=== PATIENT | female | born 1985 | race Two or more races ===

== ENCOUNTER 2017-04-10 08:55 | Emergency (ER) | payer OTHER ==
[2017-04-10 08:59] VITALS: BMI 43.0
--- NOTE | 2017-04-10 09:29 | PDOC ---
History of Present Illness - General Chief Complaint: Pain Stated Complaint: ABD PAIN, DIZZY Time Seen by Provider: 04/10/17 09:28 - History of Present Illness Initial Comments: 04/10/17 09:28 Ms. Hill is a 31 yo female with no significant past medical history who presents to the emergency department with a 3 day history of increasing dizzy spells that she reports come on suddenly without cause and have been lasting for longer and longer. She reports that when this occurs she feels unsteady as if she will fall down, even when she is sitting without movement. She also reports waking up at 3am this morning with upper abdominal pain that she says has since resolved. She reports eating some spicy pasta her friend made for dinner last night. The patient denies chest pain, shortness of breath, and headache. Denies fever, chills, nausea, vomit, diarrhea and constipation. Denies dysuria, frequency, urgency and hematuria. Allergies: NKDA Past surgical history: Denies Past History - Past Medical History Allergies/Adverse Reactions: Allergies Allergy/AdvReac Type Severity Reaction Status Date / Time No Known Allergies Allergy Verified 04/10/17 11:15 Home Medications: Ambulatory Orders NK [No Known Home Medication] 04/10/17 Other medical history: DENIES - Suicide/Smoking/Psychosocial Hx Smoking Status: Yes Smoking History: Never smoked Have you smoked in the past 12 months: No Number of Cigarettes Smoked Daily: 0 Information on smoking cessation initiated: No 'Breaking Loose' booklet given: 06/09/14 Hx Alcohol Use: No Drug/Substance Use Hx: No Substance Use Type: None Review of Systems - Review of Systems Comments:: 04/10/17 09:29 GENERAL/CONSTITUTIONAL: No fever or chills. No weakness. HEAD, EYES, EARS, NOSE AND THROAT: No change in vision. No ear pain or discharge. No sore throat. CARDIOVASCULAR: No chest pain or shortness of breath RESPIRATORY: No cough, wheezing, or hemoptysis. GASTROINTESTINAL: +Some nausea during dizzy spells, no vomiting, diarrhea or constipation. GENITOURINARY: No dysuria, frequency, or change in urination. MUSCULOSKELETAL: No joint or muscle swelling or pain. No neck or back pain. SKIN: No rash NEUROLOGIC: +Increasingly frequent dizzy spells, No headache, vertigo, loss of consciousness, or change in strength/sensation. ENDOCRINE: No increased thirst. No abnormal weight change HEMATOLOGIC/LYMPHATIC: No anemia, easy bleeding, or history of blood clots. ALLERGIC/IMMUNOLOGIC: No hives or skin allergy. *Physical Exam - Vital Signs Last Vital Signs Temp Pulse Resp BP Pulse Ox 98.3 F 70 18 121/60 99 04/10/17 08:57 04/10/17 08:57 04/10/17 08:57 04/10/17 08:57 04/10/17 08:57 - Physical Exam Comments: 04/10/17 09:29 GENERAL: Awake, alert, and fully oriented, in no acute distress HEAD: No signs of trauma, normocephalic, atraumatic EYES: PERRLA, EOMI, sclera anicteric, conjunctiva clear ENT: Auricles normal inspection, hearing grossly normal, nares patent, oropharynx clear without exudates. Moist mucosa NECK: Normal ROM, supple, no lymphadenopathy, JVD, or masses LUNGS: No distress, speaks full sentences, clear to auscultation bilaterally HEART: Regular rate and rhythm, normal S1 and S2, no murmurs, rubs or gallops, peripheral pulses normal and equal bilaterally. ABDOMEN: +Mild abdominal discomfort noted in bilateral upper quadrants. Soft, normoactive bowel sounds. No guarding, no rebound. No masses EXTREMITIES: Normal inspection, Normal range of motion, no edema. No clubbing or cyanosis. NEUROLOGICAL: Cranial nerves II through XII grossly intact. Normal speech, normal gait, no focal sensorimotor deficits SKIN: Warm, Dry, normal turgor, no rashes or lesions noted. ED Treatment Course - LABORATORY CBC & Chemistry Diagram: 04/10/17 11:00 04/10/17 11:00 Medical Decision Making - Medical Decision Making 04/10/17 11:48 Ms. Hill is currently resting comfortably with no symptoms of dizziness or stomach discomfort. EKG: Normal rhythm, normal rate, normal access, normal interval, no ST elevations - Normal EKG. Troponin negative, Labs wnl as below. Patient currently menstrating. No other issues. Will recommend outpatient PCP follow-up as needed for any further dizzy symptoms. Laboratory Results - last 24 hr 04/10/17 04/10/17 04/10/17 11:00 11:00 11:00 WBC 8.6 RBC 4.46 Hgb 12.1 Hct 37.0 MCV 82.9 MCH 27.2 MCHC 32.8 RDW 14.0 Plt Count 276 MPV 8.5 Neutrophils % 67.9 D Lymphocytes % 21.4 D Monocytes % 6.9 Eosinophils % 3.2 D Basophils % 0.6 Sodium 138 Potassium 4.4 Chloride 104 Carbon Dioxide 24 Anion Gap 10 BUN 8 Creatinine 0.6 Creat Clearance w eGFR > 60 Random Glucose 76 Calcium 8.6 Total Bilirubin 0.3 D AST 24 ALT 40 D Alkaline Phosphatase 107 Creatine Kinase 68 Troponin I < 0.02 Total Protein 7.6 Albumin 3.4 Lipase 110 Urine Color Straw Urine Appearance Clear Urine pH 7.0 Urine Protein Negative Urine Glucose (UA) Negative Urine Ketones Negative Urine Blood 2+ H Urine Nitrite Negative Urine Bilirubin Negative Urine Urobilinogen Negative Urine RBC 4 Urine WBC <1 Ur Epithelial Cells Rare Urine HCG, Qual Negative *DC/Admit/Observation/Transfer Diagnosis at time of Disposition: Dizziness Gastroesophageal reflux disease Qualifiers: Esophagitis presence: esophagitis presence not specified Qualified Code(s): K21.9 - Gastro-esophageal reflux disease without esophagitis; K21.9 - Gastro- esophageal reflux disease without esophagitis; K21.9 - Gastro-esophageal reflux disease without esophagitis
[2017-04-10] MEDS ORDERED: SODIUM CHLORIDE 1,000 ML IV STA (10:08)
--- NOTE | 2017-04-10 10:34 | PDOC ---
Attending Attestation - Resident Resident Name: Xavi Hedrick - ED Attending Attestation I have performed the following: I have examined & evaluated the patient, The case was reviewed & discussed with the resident, I agree w/resident's findings & plan, Exceptions are as noted - HPI HPI: 04/10/17 09:48 31yo F hx cholelithiasis p/w epigastric abdominal pain since 3am and 3 days of intermittent dizziness. Abdominal pain was burning and resolved on its own without intervention. She reports she noticed the dizziness 3 days ago, when she was at a birthday [employer] party, was sitting and stood up, got lightheaded and felt like she was going to pass out. Denies room spinning, states she felt "unsteady " and had to sit down. At that time, she sat and did not have LOC. She reports her mom said she was pale when she sat down. +associated nausea but no associated vomiting, CP, SOB, headache, or abdominal pain. Pt reports a similar sensation of lightheadedness at [employer] yesterday that resolved when she leaned her head over the shopping cart. Pt went on google yesterday and became concerned she was having a stroke and thus presented to the ED today. Denies current dizziness or abd pain, is currently asymptomatic. Denies previous episodes of syncope. Had unprotected sex with her son's father 1 month ago. Reports she currently has her period. Denies vaginal discharge or any abd pain. Also denies fevers, chills, focal weakness or numbness, visual symptoms. - Physicial Exam PE: 04/10/17 10:34 GENERAL: Awake, alert, and fully oriented, in no acute distress HEAD: No signs of trauma EYES: PERRLA, EOMI, sclera anicteric, conjunctiva clear ENT: Auricles normal inspection, hearing grossly normal, nares patent, oropharynx clear without exudates. Moist mucosa NECK: Normal ROM, supple, no lymphadenopathy, JVD, or masses LUNGS: Breath sounds equal, clear to auscultation bilaterally. No wheezes, and no crackles HEART: Regular rate and rhythm, normal S1 and S2, no murmurs, rubs or gallops ABDOMEN: Soft, mild epigastric ttp, normoactive bowel sounds. No guarding, no rebound. No masses EXTREMITIES: Normal range of motion, no edema. No clubbing or cyanosis. No cords, erythema, or tenderness NEUROLOGICAL: Normal speech, cranial nerves intact, negative pronator drift, 5/ 5 strength in all 4 extremities, normal sensation to light touch in all 4 extremities, normal cerebellar exam, normal gait, can walk in tandem, normal FNF , normal reflexes and tone SKIN: Warm, Dry, normal turgor, no rashes or lesions noted. - Medical Decision Making 04/10/17 10:35 31yo F hx cholelithiasis p/w epigastric pain, resolved and intermittent episodes of pre-syncope. Vitals and exam, including full neurologic exam wnl. Resolved peigastric pain may be biliary colic vs GERD vs pancreatitis vs gastritis. Pre-syncope may be 2/2 anemia vs vs electrolyte abnormality vs UTI. Unlikely CVA as pt's neuro exam is completely normal and pt has no risk factors. -labs -UPT -UA -IVF -reassess 04/10/17 12:19 Labs unremarkable. Urine test negative. UA with no signs of infection. Patient feels much better after 1 L of fluids. Ambulating in the ED with a steady gait, denies dizziness. Patient is currently working on making an appointment with her primary care doctor. We've also given her the name of a primary doctor here if she is unable to get an appointment sooner. I discussed the physical exam findings, ancillary test results and final diagnoses with the patient. I answered all of the patient's questions. The patient was satisfied with the care received and felt comfortable with the discharge plan and treatment plan. The patient will call their primary care physician within 24 hours to arrange follow-up and will return to the Emergency Department with any new, persistent or worsening symptoms. Heart Score/ECG Review #1 04/10/17 10:54 NSR, rate 65, nl axis and intervals, no GERTRUDE, isolated TWI lead III
[2017-04-10 11:07] LABS: BASOPHIL 0.6 % (0-2.0); EOSINOPHIL 3.2 % (0-4.5); MCH 27.2 pg (25.7-33.7); MCHC 32.8 g/dl (32.0-36.0); MEAN CELL VOLUME 82.9 fl (80-96); MEAN PLT VOLUME 8.5 fl (7.5-11.1); NEUTROPHILS 67.9 % (42.8-82.8); PLATELET COUNT 276 K/MM3 (134-434); WHITE BLOOD COUNT 8.6 K/mm3 (4.0-10.0)
[2017-04-10 11:30] LABS: ALBUMIN 3.4 g/dl (3.4-5.0); ANION GAP 10 (8-16); BILIRUBIN,TOTAL 0.3 mg/dL (0.2-1.0); CALCIUM 8.6 mg/dL (8.5-10.1); CO2 24 mmol/L (21-32); CREATININE 0.6 mg/dL (0.55-1.02); GLUCOSE,RANDOM 76 mg/dL (74-106); SGOT/AST 24 U/L (15-37); SGPT/ALT 40 U/L (12-78); TOT PROT 7.6 g/dl (6.4-8.2)
[2017-04-10 11:32] LABS: ALK PHOS 107 U/L (45-117); CPK 68 IU/L (26-192); TROPONIN I < 0.02 ng/ml (0.00-0.05)
[2017-04-10 11:34] LABS: URINE APPEARANCE CLEAR; URINE BILIRUBIN NEGATIVE (NEGATIVE); URINE BLOOD 2+ (NEGATIVE); URINE COLOR STRAW; URINE GLUCOSE (UA) NEGATIVE (NEGATIVE); URINE KETONE NEGATIVE (NEGATIVE); URINE NITRITE NEGATIVE (NEGATIVE); URINE PROTEIN NEGATIVE (NEGATIVE); URINE UROBILINOGEN NEGATIVE mg/dL (0.2-1.0)
[2017-04-10 11:38] LABS: URINE RBC 4 /hpf (0-3); URINE WBC <1 /hpf (3-5)
[2017-04-10 13:00] VITALS: BP 127/74; PULSE 78; TEMP 98.6
[2017-04-10 19:49] LABS: URINE LEUK ESTERASE Negative (NEGATIVE)
--- NOTE | 2017-04-10 21:59 | EKG ---
Test Reason : Blood Pressure : / mmHG Vent. Rate : 065 BPM Atrial Rate : 065 BPM P-R Int : 130 ms QRS Dur : 094 ms QT Int : 434 ms P-R-T Axes : 033 028 020 degrees QTc Int : 451 ms NORMAL SINUS RHYTHM NORMAL ECG WHEN COMPARED WITH ECG OF 09-FEB-2013 19:49, NO SIGNIFICANT CHANGE WAS FOUND CLINICAL CORRELATION IS RECOMMENDED Confirmed by LESVIA OWENS MD ([id number]) on 04/10/2017 9:58:59 PM Referred By: Confirmed By:LESVIA OWENS MD
== END 2017-04-10 12:58 | disposition home or self-care (01) ==
LOC: JER 08:55
PROC: 3E0337Z Introduction of Electrolytic and Water Balance Substance into Peripheral Vein, Percutaneous Approach (ICD-10-PCS; principal; 2017-04-10)
DX: R42 Dizziness and giddiness (principal)
CPT/HCPCS: 36415; 80053; 81003; 81015; 82550; 83690; 84484; 84703; 85025; 93005; 93010; 99284-25

== ENCOUNTER 2017-05-30 07:04 | Inpatient (IN) | payer OTHER ==
--- NOTE | 2017-05-30 08:20 | PDOC ---
History of Present Illness <JacobTova - Last Filed: 05/30/17 11:54> - History of Present Illness Initial Comments: 05/30/17 08:44 31-year-old female with a history of cholelithiasis presents with sudden onset 10 out of 10 sharp epigastric pain this morning that woke her up from sleep. She reports that the pain comes in waves and then resolves on its own. She reports having similar pain in the past after greasy meals and states she ate [employer] last night. She's had similar episodes of pain for months after surgery foods. Reports chills but no fevers. Also reports nausea but no vomiting. Tried zantac with no relief. Denies any chest pain, shortness of breath, lower extremity edema, urinary symptoms, headache or focal weakness. <Randy Morrison - Last Filed: 05/30/17 15:04> - General Chief Complaint: Pain Stated Complaint: ABD PAIN Time Seen by Provider: 05/30/17 08:17 Past History <Tova James - Last Filed: 05/30/17 11:54> - Past Medical History COPD: No Other medical history: NONE - Suicide/Smoking/Psychosocial Hx Smoking Status: Yes Smoking History: Never smoked Have you smoked in the past 12 months: No Number of Cigarettes Smoked Daily: 0 'Breaking Loose' booklet given: 06/09/14 Hx Alcohol Use: No Drug/Substance Use Hx: No Substance Use Type: None <Randy Morrison - Last Filed: 05/30/17 15:04> - Past Medical History Allergies/Adverse Reactions: Allergies Allergy/AdvReac Type Severity Reaction Status Date / Time No Known Allergies Allergy Verified 05/30/17 07:22 Home Medications: Ambulatory Orders NK [No Known Home Medication] 04/10/17 Review of Systems - Review of Systems Comments:: 05/30/17 08:54 GENERAL/CONSTITUTIONAL: +chills. No fever, no weakness. HEAD, EYES, EARS, NOSE AND THROAT: No change in vision. No ear pain or discharge. No sore throat. GASTROINTESTINAL: + nausea, no vomiting, diarrhea or constipation. +abd pain GENITOURINARY: No dysuria, frequency, or change in urination. CARDIOVASCULAR: No chest pain or shortness of breath. RESPIRATORY: No cough, wheezing, or hemoptysis. MUSCULOSKELETAL: No joint or muscle swelling or pain. No neck or back pain. SKIN: No rash NEUROLOGIC: No headache, vertigo, loss of consciousness, or change in strength/ sensation. ENDOCRINE: No increased thirst. No abnormal weight change. HEMATOLOGIC/LYMPHATIC: No anemia, easy bleeding, or history of blood clots. ALLERGIC/IMMUNOLOGIC: No hives or skin allergy. <Kyler Morrisonmna - Last Filed: 05/30/17 15:04> *Physical Exam - Vital Signs Last Vital Signs Temp Pulse Resp BP Pulse Ox 98.0 F 85 20 121/33 99 05/30/17 07:19 05/30/17 07:19 05/30/17 07:19 05/30/17 07:19 05/30/17 07:19 <Tova James - Last Filed: 05/30/17 11:54> - Vital Signs Last Vital Signs Temp Pulse Resp BP Pulse Ox 98.0 F 85 20 121/33 99 05/30/17 07:19 05/30/17 07:19 05/30/17 07:19 05/30/17 07:19 05/30/17 07:19 - Physical Exam Comments: 05/30/17 08:55 GENERAL: Awake, alert, and fully oriented, in no acute distress. Obese HEAD: No signs of trauma EYES: PERRLA, EOMI, sclera anicteric, conjunctiva clear ENT: Auricles normal inspection, hearing grossly normal, nares patent, oropharynx clear without exudates. Moist mucosa NECK: Normal ROM, supple, no lymphadenopathy, JVD, or masses LUNGS: Breath sounds equal, clear to auscultation bilaterally. No wheezes, and no crackles HEART: Regular rate and rhythm, normal S1 and S2, no murmurs, rubs or gallops ABDOMEN: Soft, +epigastric and RUQ ttp, +murphys sign, normoactive bowel sounds. No guarding, no rebound. No masses EXTREMITIES: Normal range of motion, no edema. No clubbing or cyanosis. No cords, erythema, or tenderness NEUROLOGICAL: Normal speech, cranial nerves intact, negative pronator drift, 5/ 5 strength in all 4 extremities, normal sensation to light touch in all 4 extremities, normal cerebellar exam, normal gait, normal reflexes and tone SKIN: Warm, Dry, normal turgor, no rashes or lesions noted. <Randy Morrison - Last Filed: 05/30/17 15:04> ED Treatment Course - LABORATORY CBC & Chemistry Diagram: 05/30/17 09:14 05/30/17 09:14 - ADDITIONAL ORDERS Additional order review: Laboratory Results 05/30/17 05/30/17 09:14 09:14 Sodium 136 Potassium 4.6 Chloride 104 Carbon Dioxide 27 Anion Gap 5 L BUN 10 D Creatinine 0.8 D Creat Clearance w eGFR > 60 Random Glucose 102 D Calcium 8.4 L Total Bilirubin 0.3 AST 19 D ALT 34 Alkaline Phosphatase 115 Total Protein 7.9 Albumin 3.4 Lipase 111 Urine Color Lt. yellow Urine Appearance Clear Urine pH 6.5 Ur Specific [place] 1.025 Urine Protein Trace H Urine Glucose (UA) Negative Urine Ketones Negative Urine Blood Negative Urine Nitrite Positive Urine Bilirubin Negative Urine Urobilinogen 0.2 Ur Leukocyte Esterase Negative Urine WBC (Auto) 2 Urine RBC (Auto) 1 Ur Epithelial Cells Few Urine Mucus Many 05/30/17 09:14 RBC 4.65 MCV 82.1 MCHC 33.1 RDW 14.1 MPV 8.4 Neutrophils % 82.5 D Lymphocytes % 10.9 D Monocytes % 4.8 Eosinophils % 1.5 Basophils % 0.3 - Medications Given in the ED: ED Medications Discontinued Medications Generic Name Dose Route Start Last Admin Trade Name Travisq PRN Reason Stop Dose Admin Famotidine/Sodium Chloride 20 mg in 50 mls @ 100 mls/hr 05/30/17 10:30 09:32 Pepcid 20 Mg Premixed Ivpb - IVPB 05/30/17 10:59 100 mls/hr ONCE ONE Administration Ondansetron HCl 4 mg 05/30/17 08:41 05/30/17 09:22 Zofran Injection IVPUSH 05/30/17 08:42 4 mg ONCE ONE Administration Sodium Chloride 1,000 ml 05/30/17 08:41 05/30/17 09:22 Normal Saline - IV 05/30/17 08:42 1,000 ml ONCE ONE Administration <Tova James - Last Filed: 05/30/17 11:54> - LABORATORY CBC & Chemistry Diagram: 05/30/17 09:14 05/30/17 09:14 <Randy Morrison - Last Filed: 05/30/17 15:04> Medical Decision Making - Medical Decision Making Call placed to Dr. Andino at 11:40 AM. Awaiting call back. Dr. Andino responded to the page at 11:41 AM Patient's case was discussed. <Tova James - Last Filed: 05/30/17 11:54> - Medical Decision Making 05/30/17 08:55 31-year-old female with history of cholelithiasis presents with 10 out of 10 intermittent epigastric pain. Vitals are unremarkable. Exam with positive Meyers sign and tenderness to the right upper quadrant and epigastric area. Presentation is highly concerning for acute cholecystitis. Also on the differential is pancreatitis versus gastritis. Plan: -NPO -plans -IVF -US -pain control -surgery c/s 05/30/17 10:04 CBC remarkable for leukocytosis to 13. CMP is pending. Urinalysis is nitrite positive but with minimal 's. Patient is asymptomatic and thus will defer treatment for now 05/30/17 12:09 UPT negative. Ultrasound with contracted gallbladder and multiple stones. Patient remains tender on exam, concerning for clinical cholecystitis. Case discussed with Dr. Andino for surgical evaluation who will evaluate the patient. 05/30/17 14:11 Patient is awaiting surgical evaluation. The nurse informed me that the family is upset and stated that "nothing is being done." I presented to the bedside to speak with the patient and her family. I explained that thus far we have obtained labs, and ultrasound, urinalysis and treated her pain and nausea. I also discussed with her that I spoke with the surgeon and have been awaiting a surgical consult. The family stated that I have not checked in with the patient except for the initial evaluation however, I checked on the patient twice once to see if she been lined and labbed at which point I asked the nurse to put in an IV and draw lab work. I also checked on her about an hour later to ensure that her pain was improved, at which point the patient stated that medications had helped her pain. Either way, I apologized to the patient for the delay and offered to page Dr. Andino again. 05/30/17 14:18 Dr. Andino currently at the bedside. 05/30/17 15:01 Pt to be admitted to Dr. Thu for bautista tomorrow. Pt NPO. Maintenance fluids ordered Case discussed in detail with admitting physician including history, physical exam and ancillary studies. Admitting physician has assumed care for the patient, will follow all pending diagnostics and will complete the evaluation and treatment. <Randy Morrison - Last Filed: 05/30/17 15:04> *DC/Admit/Observation/Transfer <Tova James - Last Filed: 05/30/17 11:54> - Discharge Dispostion Admit: Yes - Attestations Physician Attestion: 05/30/17 15:01 I, Dr. Randy Morrison MD, attest that this document has been prepared under my direction and personally reviewed by me in its entirety. I further attest, that it accurately reflects all work, treatment, procedures and medical decision -making performed by me. <Randy Morrison - Last Filed: 05/30/17 15:04> Diagnosis at time of Disposition: Cholecystitis - Discharge Dispostion Condition at time of disposition: Stable
[2017-05-30] MEDS ORDERED: ONDANSETRON 4 MG/2 ML VIAL IVPUSH ONE (08:41)
[2017-05-30] MEDS ORDERED: SODIUM CHLORIDE 0.9% 500 ML INFUS.BAG IV ONE (08:41)
[2017-05-30] MEDS ORDERED: ONDANSETRON 4 MG/2 ML VIAL ONE (08:52)
[2017-05-30 09:26] LABS: PH,URINE 6.5 (5.0-8.0); URINE APPEARANCE CLEAR; URINE BILIRUBIN NEGATIVE (NEGATIVE); URINE BLOOD NEGATIVE (NEGATIVE); URINE COLOR LT. YELLOW; URINE GLUCOSE (UA) NEGATIVE (NEGATIVE); URINE KETONE NEGATIVE (NEGATIVE); URINE PROTEIN TRACE (NEGATIVE); URINE UROBILINOGEN 0.2 mg/dL (0.2-1.0)
[2017-05-30 09:31] LABS: URINE NITRITE POSITIVE (NEGATIVE)
[2017-05-30 09:38] LABS: BASOPHIL 0.3 % (0-2.0); EOSINOPHIL 1.5 % (0-4.5); MCH 27.1 pg (25.7-33.7); MCHC 33.1 g/dl (32.0-36.0); MEAN CELL VOLUME 82.1 fl (80-96); MEAN PLT VOLUME 8.4 fl (7.5-11.1); NEUTROPHILS 82.5 % (42.8-82.8); PLATELET COUNT 305 K/MM3 (134-434); RDW 14.1 % (11.6-15.6); WHITE BLOOD COUNT 13.4 K/mm3 (4.0-10.0)
[2017-05-30 09:58] LABS: ALBUMIN 3.4 g/dl (3.4-5.0); ALK PHOS 115 U/L (45-117); ANION GAP 5 (8-16); BILIRUBIN,TOTAL 0.3 mg/dL (0.2-1.0); CALCIUM 8.4 mg/dL (8.5-10.1); CO2 27 mmol/L (21-32); CREATININE 0.8 mg/dL (0.55-1.02); GLUCOSE,RANDOM 102 mg/dL (74-106); SGOT/AST 19 U/L (15-37); SGPT/ALT 34 U/L (12-78); TOT PROT 7.9 g/dl (6.4-8.2)
[2017-05-30 10:00] LABS: URINE MUCUS MANY; URINE RBC 1 /hpf (0-3); URINE WBC 2 /hpf (3-5)
[2017-05-30] MEDS ORDERED: FAMOTIDINE 20 MG/50 ML IVPB 20 MG/50 ML MG IVPB ONE ×2 (10:30→17:01)
[2017-05-30 11:47] LABS: URINE LEUK ESTERASE Negative (NEGATIVE)
--- NOTE | 2017-05-30 15:25 | HP ---
Admitting History and Physical - Primary Care Physician PCP: Viktoriya Bennett (Viktoriya Thompson on [facility]) - Admission Chief Complaint: epigastric pain with nausea History of Present Illness: 31yo obese F with h/o cholelithiasis, changed her diet about 2 years ago and has not had pain attacks for some time until more recently with more fatty food choices. She used to get pain that lasted no more than an hour and would go away. This time, she was awakened at 6am this morning after [employer] burger and fries last night with epigastric pain so bad, she could barely move. Zantac did not help, though it often does (along with Tums) for acid-related pain. She had mild chills but no fever, nausea but no vomiting, and no diarrhea or constipation. In ER, she is afebrile, wbc 13.4, LFTs and lipase normal, and US showed likely contracted gallbladder with multiple stones, similar to 2 years ago, but less well visualized individually. No biliary ductal dilation. Her pain is better after medication, though she initially had a Meyers's sign on ER exam. She has no more nausea now. 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) Gastrointestinal: Yes: GERD Hepatobiliary: Yes: Cholelithiasis ...LMP Comment: due anytime now ...: No ...Para: 1 - Past Surgical History Past Surgical History: Yes: None - Smoking History Smoking history: Former smoker Have you smoked in the past 12 months: No Aproximately how many cigarettes per day: 0 (1ppd x 10 yrs) If you are a former smoker, when did you quit?: 6 yrs ago - Alcohol/Substance Use Hx Alcohol Use: Yes (social) History of Substance Use: reports: None - Social History Usual Living Arrangement: Yes: With Child ADL: Independent 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 Zantac prn. Tums prn Family Disease History - Family Disease History Family Disease History: CA: Father (at 70, living at 80 (not sure what kind)), Other: Mother (celiac disease) Review of Systems - Review of Systems Constitutional: reports: Chills (mild). denies: Fever Eyes: denies: Blurred Vision, Recent Change in Vision HENT: reports: Throat Pain (today), Ringing in Ears (right, at times). denies: Difficult Swallowing, Nasal Congestion Neck: denies: Swollen Glands, Tenderness Cardiovascular: denies: Chest Pain, Palpitations Respiratory: reports: Cough (just in last day or so), SOB on Exertion. denies: SOB Gastrointestinal: reports: Abdominal Pain (with hpi), Indigestion (at times - "cool sensation" in esophagus, occasional sour taste in throat), Nausea (with hpi). denies: Constipation, Diarrhea, Vomiting Genitourinary: denies: Burning, Dysuria, Frequency, Urgency Musculoskeletal: reports: Back Pain (at times, uses no meds). denies: Joint Pain, Muscle Pain Integumentary: denies: Change in Color, Rash Neurological: reports: Dizziness (gets with menses), Headache (stress type) Psychiatric: denies: Anxiety, Depression Physical Examination Vital Signs: Vital Signs Temperature 98.0 F 05/30/17 07:19 Pulse Rate 85 05/30/17 07:19 Respiratory Rate 20 05/30/17 07:19 Blood Pressure 121/33 05/30/17 07:19 O2 Sat by Pulse Oximetry (%) 99 05/30/17 07:19 Constitutional: Yes: Well Nourished, No Distress, Calm, Obese Eyes: Yes: Conjunctiva Clear, EOM Intact. No: Sclera Icterus HENT: Yes: Atraumatic, Normocephalic Neck: Yes: Supple, Trachea Midline Cardiovascular: Yes: Regular Rate and Rhythm. No: Murmur Respiratory: Yes: Regular, CTA Bilaterally Gastrointestinal: Yes: Soft, Abdomen, Obese, Hypoactive Bowel Sounds. No: Distention, Tenderness (very mild RUQ tend on deep inspiration to deep palpation only), Tenderness, Epigastrium, Tenderness, Rebound ...Rectal Exam: Yes: Deferred Renal/: No: CVA Tenderness - Left, CVA Tenderness - Right Musculoskeletal: No: Joint Stiffness, Joint Swelling Extremities: No: Cool, Cyanosis Edema: No Peripheral Pulses WNL: Yes Integumentary: No: Jaundice, Rash Neurological: Yes: Alert, Oriented Psychiatric: Yes: Alert, Oriented Labs: CBC, BMP 05/30/17 09:14 05/30/17 09:14 CMP Sodium 136 mmol/L (136-145) 05/30/17 09:14 Potassium 4.6 mmol/L (3.5-5.1) 05/30/17 09:14 Chloride 104 mmol/L (98-107) 05/30/17 09:14 Carbon Dioxide 27 mmol/L (21-32) 05/30/17 09:14 Anion Gap 5 (8-16) L 05/30/17 09:14 BUN 10 mg/dL (7-18) D 05/30/17 09:14 Creatinine 0.8 mg/dL (0.55-1.02) D 05/30/17 09:14 Creat Clearance w eGFR > 60 (>60) 05/30/17 09:14 Random Glucose 102 mg/dL (74-106) D 05/30/17 09:14 Calcium 8.4 mg/dL (8.5-10.1) L 05/30/17 09:14 Total Bilirubin 0.3 mg/dL (0.2-1.0) 05/30/17 09:14 AST 19 U/L (15-37) D 05/30/17 09:14 ALT 34 U/L (12-78) 05/30/17 09:14 Alkaline Phosphatase 115 U/L (45-117) 05/30/17 09:14 Total Protein 7.9 g/dl (6.4-8.2) 05/30/17 09:14 Albumin 3.4 g/dl (3.4-5.0) 05/30/17 09:14 Lipase 111 U/L (73-393) 05/30/17 09:14 Beta HCG, Quant < 1.0 mIU/ml 05/30/17 09:14 Imaging - Results Ultrasound: Report Reviewed (gallstones without clear imaging of gallbladder wall, normal cbd), Image Reviewed Problem List - Problems (1) Calculus of gallbladder with acute on chronic cholecystitis without obstruction Assessment/Plan: clinical picture and leukocytosis most consistent with acute on chronic cholecystitis will admit for IV antibiotics and laparoscopic cholecystectomy NPO/IVF until after surgery GI/DVT prophylaxis ID for antibiotic approval - plan Cefoxitin trend labs in am, preop labs MRCP if labs concerning in am Discussed with patient risks, benefits and alternatives of laparoscopic possible open cholecystectomy, including but not limited to bleeding, infection , injury to adjacent structures, bile leak or ductal injury, intraabdominal abscess, need for further procedures; alternatives include antibiotics, delayed or no surgery - risks of this include recurrence of cholecystitis, cholangitis, pancreatitis, sepsis. Patient desires to proceed with operation - will take to OR tomorrow for above pending repeat labs. Informed consent signed for same. Pt anticipated to spend at least two midnights in the hospital. Code(s): K80.12 - CALCULUS OF GB W ACUTE AND CHRONIC CHOLECYST W/O OBSTRUCTION (2) Acid reflux Assessment/Plan: GI prophylaxis in hospital Code(s): K21.9 - GASTRO-ESOPHAGEAL REFLUX DISEASE WITHOUT ESOPHAGITIS Qualifiers: Esophagitis presence: without esophagitis Qualified Code(s): K21.9 - Gastro -esophageal reflux disease without esophagitis (3) Epigastric pain Code(s): R10.13 - EPIGASTRIC PAIN (4) Obesity (BMI 30-39.9) Code(s): E66.9 - OBESITY, UNSPECIFIED
[2017-05-30] MEDS ORDERED: morphine SULFATE 4 MG/ML VIAL IVPUSH PRN (15:51)
[2017-05-30] MEDS ORDERED: ONDANSETRON 4 MG/2 ML VIAL IVPUSH PRN (15:54)
[2017-05-30] MEDS ORDERED: cefOXitin SODIUM 2 GM VIAL (RESTRICTED TO ID) IVPB ONE (15:55)
[2017-05-30] MEDS ORDERED: FAMOTIDINE IV 20 MG/12 ML VIAL IVPUSH SCH (16:00)
[2017-05-30] MEDS ORDERED: D5-1/2NS+20 MEQ KCL - 1,000 ML IV SCH (16:00)
[2017-05-30] MEDS ORDERED: CEFOXITIN SODIUM 1 GM PUSH 1 GM/10 ML DISP.SYRIN IVPUSH SCH (16:30)
[2017-05-30] MEDS: CEFOXITIN SODIUM 2 GM in DEXTROSE 5%-WATER - 100 ML IVPB SCH (17:10)
[2017-05-30] MEDS: DEXTROSE 5%-LACTATED RINGERS 1,000 ML IV SCH (17:10)
[2017-05-30] MEDS: FAMOTIDINE 20 MG/50 ML IVPB 20 MG/50 ML MG IVPB SCH ×2 (17:10→22:00)
[2017-05-31 00:04] VITALS: BMI 41.8
[2017-05-31] MEDS: CEFOXITIN SODIUM 2 GM in DEXTROSE 5%-WATER - 100 ML IVPB SCH ×3 (01:38→17:11)
[2017-05-31] MEDS: DEXTROSE 5%-LACTATED RINGERS 1,000 ML IV SCH ×3 (04:00→22:51)
[2017-05-31 08:44] LABS: BASOPHIL 0.4 % (0-2.0); EOSINOPHIL 3.1 % (0-4.5); MCH 27.9 pg (25.7-33.7); MCHC 33.3 g/dl (32.0-36.0); MEAN CELL VOLUME 83.5 fl (80-96); MEAN PLT VOLUME 8.7 fl (7.5-11.1); NEUTROPHILS 66.6 % (42.8-82.8); PLATELET COUNT 215 K/MM3 (134-434); WHITE BLOOD COUNT 6.6 K/mm3 (4.0-10.0)
[2017-05-31 08:46] LABS: INR 1.16 (0.82-1.09); PROTHROMBIN TIME (PATIENT) 13.1 SEC (9.98-11.88)
[2017-05-31 08:58] LABS: AMYLASE 28 U/L (25-115); ANION GAP 6 (8-16); CALCIUM 8.1 mg/dL (8.5-10.1); CO2 28 mmol/L (21-32); CREATININE 0.8 mg/dL (0.55-1.02); GLUCOSE,RANDOM 120 mg/dL (74-106); SGOT/AST 17 U/L (15-37); SGPT/ALT 30 U/L (12-78)
[2017-05-31 09:01] LABS: ALK PHOS 93 U/L (45-117); BILIRUBIN,TOTAL 0.6 mg/dL (0.2-1.0); TOT PROT 6.5 g/dl (6.4-8.2)
[2017-05-31] MEDS ORDERED: PT OWN MED DRAWER 7, Y5N ONE ×2 (09:31→17:06)
[2017-05-31] MEDS: FAMOTIDINE 20 MG/50 ML IVPB 20 MG/50 ML MG IVPB SCH ×2 (09:36→22:50)
--- NOTE | 2017-05-31 10:19 | PN ---
Progress Note, Physician Chief Complaint: epigastric pain History of Present Illness: Pt seen and examined in bed. No overnight events. Had some pain this am, but has none now after morphine. No nausea or fevers. - Current Medication List Current Medications: Active Medications Dextrose/Lactated Ringer's (D5-Lr -) 1,000 mls @ 125 mls/hr IV ASDIR REINIER Last Admin: 05/31/17 04:00 Dose: 125 mls/hr Cefoxitin Sodium 2 gm/ (Dextrose) 100 mls @ 200 mls/hr IVPB Q8H-IV REINIER Last Admin: 05/31/17 01:38 Dose: 200 mls/hr Famotidine/Sodium Chloride (Pepcid 20 Mg Premixed Ivpb -) 20 mg in 50 mls @ 100 mls/hr IVPB BID REINIER Last Admin: 05/31/17 09:36 Dose: 100 mls/hr Morphine Sulfate (Morphine Sulfate) 2 mg IVPUSH Q4H PRN PRN Reason: PAIN Last Admin: 05/31/17 06:46 Dose: 2 mg Ondansetron HCl (Zofran Injection) 4 mg IVPUSH Q6H PRN PRN Reason: NAUSEA - Objective Vital Signs: Vital Signs Temperature 98.3 F 05/31/17 06:00 Pulse Rate 65 05/31/17 06:00 Respiratory Rate 18 05/31/17 06:00 Blood Pressure 103/57 05/31/17 06:00 O2 Sat by Pulse Oximetry (%) 98 05/30/17 20:30 Constitutional: Yes: No Distress, Calm, Obese Eyes: Yes: Conjunctiva Clear, EOM Intact HENT: Yes: Atraumatic, Normocephalic Neck: Yes: Supple, Trachea Midline Cardiovascular: Yes: Regular Rate and Rhythm. No: Murmur Respiratory: Yes: Regular, CTA Bilaterally Gastrointestinal: Yes: Normal Bowel Sounds, Soft, Abdomen, Obese, Tenderness ( mild RUQ to deep palpation, not really epigastric). No: Distention Extremities: No: Cool, Cyanosis Integumentary: Yes: Tattoos. No: Jaundice, Rash Neurological: Yes: Alert, Oriented Psychiatric: Yes: Alert, Oriented Labs: CBC, BMP 05/31/17 07:35 05/31/17 07:35 INR, PTT INR 1.16 (0.82-1.09) H 05/31/17 07:35 CMP Sodium 140 mmol/L (136-145) 05/31/17 07:35 Potassium 4.4 mmol/L (3.5-5.1) 05/31/17 07:35 Chloride 106 mmol/L (98-107) 05/31/17 07:35 Carbon Dioxide 28 mmol/L (21-32) 05/31/17 07:35 Anion Gap 6 (8-16) L 05/31/17 07:35 BUN 7 mg/dL (7-18) D 05/31/17 07:35 Creatinine 0.8 mg/dL (0.55-1.02) 05/31/17 07:35 Creat Clearance w eGFR > 60 (>60) 05/31/17 07:35 Random Glucose 120 mg/dL (74-106) H 05/31/17 07:35 Calcium 8.1 mg/dL (8.5-10.1) L 05/31/17 07:35 Total Bilirubin 0.6 mg/dL (0.2-1.0) D 05/31/17 07:35 AST 17 U/L (15-37) 05/31/17 07:35 ALT 30 U/L (12-78) 05/31/17 07:35 Alkaline Phosphatase 93 U/L (45-117) 05/31/17 07:35 Total Protein 6.5 g/dl (6.4-8.2) 05/31/17 07:35 Albumin 3.0 g/dl (3.4-5.0) L 05/31/17 07:35 Total Amylase 28 U/L (25-115) 05/31/17 07:35 Lipase 163 U/L (73-393) 05/31/17 07:35 Beta HCG, Quant < 1.0 mIU/ml 05/30/17 09:14 wbc normal, LFTs/lipase still normal Problem List - Problems (1) Calculus of gallbladder with acute on chronic cholecystitis without obstruction Assessment/Plan: for lap possible open bautista today NPO/IVF until after surgery GI/DVT prophylaxis Cefoxitin IV plan to resume po postop, Tylenol/ibuprofen prn with narcotic breakthrough if needed d/c when ambulating, voiding, roxann po, on oral pain meds - likely by tomorrow morning Code(s): K80.12 - CALCULUS OF GB W ACUTE AND CHRONIC CHOLECYST W/O OBSTRUCTION (2) Acid reflux Assessment/Plan: GI prophylaxis in hospital Code(s): K21.9 - GASTRO-ESOPHAGEAL REFLUX DISEASE WITHOUT ESOPHAGITIS Qualifiers: Esophagitis presence: without esophagitis Qualified Code(s): K21.9 - Gastro -esophageal reflux disease without esophagitis (3) Epigastric pain Code(s): R10.13 - EPIGASTRIC PAIN (4) Obesity (BMI 30-39.9) Code(s): E66.9 - OBESITY, UNSPECIFIED
[2017-05-31] MEDS ORDERED: IBUPROFEN 800 MG/8 ML IJ IVPB ONE (11:10)
[2017-05-31] MEDS ORDERED: MIDAZOLAM HCL 2 MG/2 ML SINGLE DOSE VIAL ONE (11:33)
[2017-05-31] MEDS ORDERED: BUPIVACAINE HCL/PF 0.5% (5MG/ML) 10 ML VIAL ONE (11:39)
[2017-05-31] MEDS ORDERED: ROCURONIUM BROMIDE 50 MG/5 ML VIAL ONE (12:04)
[2017-05-31] MEDS ORDERED: SUCCINYLCHOLINE CHLORIDE 200 MG/10 ML VIAL ONE (12:04)
[2017-05-31] MEDS ORDERED: PROPOFOL 20 ML ONE (12:04)
[2017-05-31] MEDS ORDERED: KETOROLAC TROMETHAMINE 30 MG/1 ML VIAL ONE (12:05)
[2017-05-31] MEDS ORDERED: fentaNYL CITRATE 250 MCG/5 ML VIAL ONE ×2 (12:05→12:54)
[2017-05-31] MEDS ORDERED: DEXAMETHASONE SOD PHOSPHATE 4 MG/1 ML VIAL ONE (12:05)
[2017-05-31] MEDS ORDERED: GLYCOPYRROLATE 0.2 MG/1 ML VIAL ONE (13:32)
[2017-05-31] MEDS ORDERED: BENZOIN/ALOE VERA/STORAX/TOLU 58 ML BOTTLE ONE (13:32)
[2017-05-31] MEDS ORDERED: NEOSTIGMINE METHYLSULFATE 0.5 MG/ML - 10 ML MDV ONE ×2 (13:32→13:35)
[2017-05-31] MEDS ORDERED: BUPIVACAINE HCL/PF 0.5% (5MG/ML) 10 ML VIAL IJ ONE ×2 (13:33)
--- NOTE | 2017-05-31 13:48 | OP ---
Operative Note - Note: Operative Date: 05/31/17 Pre-Operative Diagnosis: acute and chronic cholecystitis Operation: laparoscopic cholecystectomy Findings: chronic omental adhesions to gallbladder, multiple gallstones; critical view identified Post-Operative Diagnosis: Same as Pre-op Surgeon: Josué Andino Infectious Diseases Physician: Fly Nunez Anesthesiologist/CUSTOMER ADVISOR SPECIALIST: Pk Roque Anesthesia: General, Local (20ml 0.5% marcaine) Specimens Removed: gallbladder Estimated Blood Loss (mls): 5 Fluid Volume Replaced (mls): 1,000 (crystalloid) Operative Report Dictated: Yes
[2017-05-31] MEDS ORDERED: ACETAMINOPHEN 325 MG TABLET (FP) PO PRN ×2 (13:49→14:22)
[2017-05-31] MEDS ORDERED: PROMETHAZINE HCL 25 MG/1 ML VIAL IVPUSH PRN (13:51)
[2017-05-31] MEDS ORDERED: oxyCODONE HCL 5 MG TABLET PO PRN ×3 (13:51→14:22)
[2017-05-31] MEDS ORDERED: ONDANSETRON 4 MG/2 ML VIAL IVPUSH PRN (13:51)
[2017-05-31] MEDS ORDERED: morphine SULFATE 4 MG/ML VIAL IVPUSH PRN ×2 (13:56→14:22)
[2017-05-31] MEDS ORDERED: DEXTROSE 5%-LACTATED RINGERS 1,000 ML IV SCH (13:56)
[2017-05-31] MEDS ORDERED: LACTATED RINGERS SOLUTION 1,000 ML IV SCH (14:00)
[2017-05-31] MEDS ORDERED: BENZOCAINE/MENTH/CETYLPYRD CL 1 EACH LOZENGE MM PRN (16:05)
[2017-05-31] MEDS: ONDANSETRON 4 MG/2 ML VIAL IVPUSH PRN ×2 (16:23→22:51)
--- NOTE | 2017-05-31 16:43 | CON.ID ---
Consult Consult Specialty:: Infectious Disease Reason for Consultation:: acute cholecystitis - History of Present Illness Chief Complaint: epigastric pain History of Present Illness: 31 y.o. female admitted for c/o epigastric pain that began early yesterday morning. Patient states that she has had these intermittent pains in the past especially after greasy meals but they had resolved with improved diet. Prior to onset of recent pain she had food from [employer]. Pt took antacids but with no relief of pain. She denied fever but had nausea along with the pain. On admission she had a mildly elevated wbc count. She was started on empiric antibiotics and is now s/p lap cholecystectomy POD#0. She currently has nausea but no episodes of vomiting. She is fully alert and without distress. 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) Cardio/Vascular: No: AFIB, Aneurysm, Aortic Insufficiency, Aortic Stenosis, CAD , CHF, Deep Vein Thrombosis, HTN, Hyperlipdemia, ND, Mitral Insufficiency, Mitral Stenosis, Murmur, Pulmonary Hypertension, Other Pulmonary: No: Asthma, Bronchitis, Cancer, COPD, O2 Dependent, Pneumonia, Previously Intubated, Pulmonary Embolus, Pulmonary Fibrosis, Sleep Apnea, Other Gastrointestinal: Yes: GERD Hepatobiliary: Yes: Cholelithiasis Renal/: No: Renal Failure, Renal Inusuff, BPH, Cancer, Hematuria, Hemodialysis , Neurogenic Bladder, Renal Calculi, UTI, Other Reproductive: No: Ectopic , Endometriosis, Fibroids, PID, Polycystic Ovary Syndrome, Postmenopausal, Other ...LMP: 05/07/15 ...LMP Comment: due anytime now ...: No Infectious Disease: No: AIDS, C-Diff, Herpes Zoster, HIV, MRSA, STD's, Tuberculosis, VREF, Other ENT: No: Allergic Rhinitis, Sinusitis, Other - Past Surgical History Past Surgical History: Yes: None - Alcohol/Substance Use Hx Alcohol Use: Yes (social) History of Substance Use: reports: None - Smoking History Smoking history: Former smoker Have you smoked in the past 12 months: No Aproximately how many cigarettes per day: 0 (1ppd x 10 yrs) If you are a former smoker, when did you quit?: 5 years ago - Social History ADL: Independent 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 No earache/sinus tenderness/fever/cough) Neck: reports: No Symptoms Cardiovascular: reports: No Symptoms Respiratory: reports: No Symptoms Gastrointestinal: reports: Abdominal Pain Genitourinary: reports: No Symptoms Musculoskeletal: reports: No Symptoms Integumentary: reports: No Symptoms Neurological: reports: No Symptoms Endocrine: reports: No Symptoms Hematology/Lymphatic: reports: No Symptoms Psychiatric: reports: No Symptoms Physical Exam Vital Signs: Vital Signs Temperature 97.6 F 05/31/17 15:30 Pulse Rate 72 05/31/17 15:30 Respiratory Rate 14 05/31/17 15:30 Blood Pressure 126/72 05/31/17 15:30 O2 Sat by Pulse Oximetry (%) 99 05/31/17 15:30 Constitutional: Yes: No Distress HENT: Yes: Atraumatic, Other (no tonsillomegaly, no throat exudates, no ALLYN) Neck: Yes: Supple Cardiovascular: Yes: Regular Rate and Rhythm Respiratory: Yes: Regular Gastrointestinal: Yes: Soft, Tenderness (appropriate tenderness post op around surgical incision sites) Renal/: Yes: WNL Musculoskeletal: Yes: WNL Extremities: Yes: WNL Integumentary: Yes: WNL Wound/Incision: Yes: Dressing Dry and Intact Neurological: Yes: Alert, Oriented Psychiatric: Yes: Alert Labs: CBC, BMP 05/31/17 07:35 05/31/17 07:35 Microbiology 05/30/17 09:14 Urine - Urine Clean Catch Urine Culture - Final Contaminated: Please Repeat Laboratory Tests 05/30/17 05/30/17 05/30/17 09:14 09:14 09:14 WBC 13.4 H D RBC 4.65 Hgb 12.6 Hct 38.2 MCV 82.1 MCH 27.1 MCHC 33.1 RDW 14.1 Plt Count 305 MPV 8.4 Neutrophils % 82.5 D Lymphocytes % 10.9 D Monocytes % 4.8 Eosinophils % 1.5 Basophils % 0.3 PT with INR INR Sodium 136 Potassium 4.6 Chloride 104 Carbon Dioxide 27 Anion Gap 5 L BUN 10 D Creatinine 0.8 D Creat Clearance w eGFR > 60 Random Glucose 102 D Calcium 8.4 L Total Bilirubin 0.3 AST 19 D ALT 34 Alkaline Phosphatase 115 Total Protein 7.9 Albumin 3.4 Total Amylase Lipase 111 Beta HCG, Quant < 1.0 Urine Color Lt. yellow Urine Appearance Clear Urine pH 6.5 Ur Specific [place] 1.025 Urine Protein Trace H Urine Glucose (UA) Negative Urine Ketones Negative Urine Blood Negative Urine Nitrite Positive Urine Bilirubin Negative Urine Urobilinogen 0.2 Ur Leukocyte Esterase Negative Urine WBC (Auto) 2 Urine RBC (Auto) 1 Ur Epithelial Cells Few Urine Mucus Many Urine HCG, Qual Cancelled Blood Type Antibody Screen 05/31/17 05/31/17 05/31/17 07:35 07:35 07:35 WBC 6.6 D RBC 3.99 Hgb 11.1 D Hct 33.3 MCV 83.5 MCH 27.9 MCHC 33.3 RDW 14.0 Plt Count 215 D MPV 8.7 Neutrophils % 66.6 Lymphocytes % 21.3 D Monocytes % 8.6 Eosinophils % 3.1 D Basophils % 0.4 PT with INR 13.10 H INR 1.16 H Sodium 140 Potassium 4.4 Chloride 106 Carbon Dioxide 28 Anion Gap 6 L BUN 7 D Creatinine 0.8 Creat Clearance w eGFR > 60 Random Glucose 120 H Calcium 8.1 L Total Bilirubin 0.6 D AST 17 ALT 30 Alkaline Phosphatase 93 Total Protein 6.5 Albumin 3.0 L Total Amylase 28 Lipase 163 Beta HCG, Quant Urine Color Urine Appearance Urine pH Ur Specific [place] Urine Protein Urine Glucose (UA) Urine Ketones Urine Blood Urine Nitrite Urine Bilirubin Urine Urobilinogen Ur Leukocyte Esterase Urine WBC (Auto) Urine RBC (Auto) Ur Epithelial Cells Urine Mucus Urine HCG, Qual Blood Type Antibody Screen 05/31/17 07:35 WBC RBC Hgb Hct MCV MCH MCHC RDW Plt Count MPV Neutrophils % Lymphocytes % Monocytes % Eosinophils % Basophils % PT with INR INR Sodium Potassium Chloride Carbon Dioxide Anion Gap BUN Creatinine Creat Clearance w eGFR Random Glucose Calcium Total Bilirubin AST ALT Alkaline Phosphatase Total Protein Albumin Total Amylase Lipase Beta HCG, Quant Urine Color Urine Appearance Urine pH Ur Specific [place] Urine Protein Urine Glucose (UA) Urine Ketones Urine Blood Urine Nitrite Urine Bilirubin Urine Urobilinogen Ur Leukocyte Esterase Urine WBC (Auto) Urine RBC (Auto) Ur Epithelial Cells Urine Mucus Urine HCG, Qual Blood Type A POSITIVE Antibody Screen Negative Imaging - Results Ultrasound: Report Reviewed Problem List - Problems (1) Calculus of gallbladder with acute on chronic cholecystitis without obstruction Code(s): K80.12 - CALCULUS OF GB W ACUTE AND CHRONIC CHOLECYST W/O OBSTRUCTION (2) Epigastric pain Code(s): R10.13 - EPIGASTRIC PAIN (3) Obesity (BMI 30-39.9) Code(s): E66.9 - OBESITY, UNSPECIFIED (4) Acid reflux Code(s): K21.9 - GASTRO-ESOPHAGEAL REFLUX DISEASE WITHOUT ESOPHAGITIS Qualifiers: Esophagitis presence: without esophagitis Qualified Code(s): K21.9 - Gastro -esophageal reflux disease without esophagitis Assessment/Plan 31 y.o. female with acute epigastric pain with similar previous episodes now s/ p lap cholecystectomy POD#0 - pt currently stable, on Cefoxitin - if remains stable may d/c antibiotics after 2 doses post-op - monitor temps/vitals
[2017-05-31] MEDS ORDERED: IBUPROFEN 600 MG TABLET (FP) PO PRN ×2 (19:00)
[2017-06-01] MEDS: CEFOXITIN SODIUM 2 GM in DEXTROSE 5%-WATER - 100 ML IVPB SCH ×2 (02:59→09:37)
[2017-06-01] MEDS: FAMOTIDINE 20 MG/50 ML IVPB 20 MG/50 ML MG IVPB SCH (09:53)
--- NOTE | 2017-06-01 10:24 | DS ---
Physical Examination Vital Signs: Vital Signs Temperature 98.3 F 06/01/17 06:00 Pulse Rate 88 06/01/17 06:00 Respiratory Rate 18 06/01/17 06:00 Blood Pressure 115/84 06/01/17 06:00 O2 Sat by Pulse Oximetry (%) 94 L 05/31/17 21:00 Findings/Remarks: Pt seen and examined in bed. Feeling overall better, but has pain in abdomen with coughing. Throat is sore with phlegm production, feels like has somewhat swollen glands with discomfort when swallowing, less tracheal pain from ETT. No nausea or fevers. Tolerating diet. Umbilical site is sorest. No pain meds yet this am. Has been OOB and voiding. Last abx dose hanging now. Constitutional: Yes: No Distress, Calm, Obese Eyes: Yes: Conjunctiva Clear, EOM Intact HENT: Yes: Atraumatic, Normocephalic Neck: Yes: Supple, Trachea Midline Cardiovascular: Yes: Regular Rate and Rhythm. No: Murmur Respiratory: Yes: Regular, CTA Bilaterally Gastrointestinal: Yes: Normal Bowel Sounds, Soft, Abdomen, Obese, Tenderness ( mild right-sided, + umbilical incisional tenderness more than other sites, no R/ G). No: Distention Musculoskeletal: No: Joint Stiffness, Joint Swelling, Muscle Weakness Extremities: No: Cool, Cyanosis Edema: No Integumentary: Yes: Incision (x4 dressed), Tattoos. No: Jaundice, Rash Wound/Incision: Yes: Steri Strips (under dressings), Dressing Dry and Intact (x4 ). No: Dressing Removed Neurological: Yes: Alert, Oriented Psychiatric: Yes: Alert, Oriented Labs: rapid strep pending Discharge Summary Reason For Visit: ACUTE ON CHRONIC CHOLECYSTITIS Current Active Problems Calculus of gallbladder with acute on chronic cholecystitis without obstruction (Acute) Epigastric pain (Acute) Obesity (BMI 30-39.9) (Acute) Procedures: Principal: laparoscopic cholecystectomy Hospital Course: 31yo obese F with h/o cholelithiasis presented to ER with acute epigastric pain that woke her from sleep, associated with nausea but no vomiting, and was found to have leukocytosis of 13.4 with cholelithiasis on ultrasound with possibly contracted gallbladder, wall not clearly visualized, normal cbd. She was admitted for acute on chronic cholecystitis, given IVF and kept NPO until after uneventful laparoscopic cholecystectomy. Cefoxitin was given from admission through postop and completed this am. She had throat soreness postop, which was more with swallowing and in her throat than her trachea, with h/o strep in past , so she requested rapid strep to be done before leaving, which is being done. Postoperatively, she tolerated diet, ambulated, voided, and is using oral pain medication without narcotics. Incisional dressings are clean, dry and intact. She is discharged home to f/u in 2-3 weeks and with her PMD in 1-2 weeks. Condition: Good - Instructions Diet, Activity, Other Instructions: Postoperative instructions: You had a laparoscopic cholecystectomy on 05/31/[address] Josué Andino of [facility]. Activity: Resume your usual activities gradually, but no heavy exertion or lifting more than 10-20 pounds for 2-3 weeks. Remove dressings 48 hours after surgery; sticky tapes underneath will fall off by themselves. You may shower daily starting then, just pat the incision areas dry. No bath or swimming until skin incisions are completely healed. Eat lightly at first, but advance to your usual diet as tolerated. Pain: For pain, you may use and alternate Tylenol (acetaminophen) and/or ibuprofen (up to 600mg) every 6 hours each as needed; this means that you can take one OR the other at 3-hour intervals. If you are prescribed a Tylenol/ narcotic combination for severe pain, use it instead of plain Tylenol as needed and switch back when your pain starts decreasing. Do not take more than 4000mg of acetaminophen in a day. Take medications as prescribed or indicated on the labeling. Follow-up: Call Dr. Andino's office at [phone] to make your postop appointment (Sunday ~2-3 weeks after surgery). Clinic is held in the [facility] on the first floor of [facility]. Call the office if you have: * increasing pain not responsive to pain medication * fever of 101F or higher * vomiting * unusual or increasing bleeding or drainage from wounds * increasing redness or swelling at wound sites * inability to urinate Also, see your primary medical doctor within 1-2 weeks. Disposition: HOME - Home Medications Comprehensive Discharge Medication List: Home Medications Medication Instructions Recorded Acetaminophen [Tylenol .Regular 650 mg PO Q6H PRN tablet 06/01/17 Strength -] Ibuprofen [Motrin -] 600 mg PO Q6H PRN tablet 06/01/17 No home medications otherwise
--- NOTE | 2017-06-01 10:56 | PN ---
Progress Note, Physician Chief Complaint: Pt. pain controlled, no GA complaints. - Current Medication List Current Medications: Active Medications Acetaminophen (Tylenol -) 650 mg PO Q6H PRN PRN Reason: PAIN Benzocaine/Menthol (Cepacol Lozenge -) 1 each MM DAILY PRN PRN Reason: SORE THROAT Last Admin: 05/31/17 17:23 Dose: 1 each Ibuprofen (Motrin -) 600 mg PO Q6H PRN PRN Reason: PAIN Ondansetron HCl (Zofran Injection) 4 mg IVPUSH Q6H PRN PRN Reason: NAUSEA Last Admin: 05/31/17 22:51 Dose: 4 mg Oxycodone HCl (Roxicodone -) 5 mg PO Q6H PRN PRN Reason: SEVERE PAIN Ranitidine HCl (Zantac -) 150 mg PO ONCE ONE Stop: 06/01/17 11:01 - Objective Vital Signs: Vital Signs Temperature 98.3 F 06/01/17 06:00 Pulse Rate 88 06/01/17 06:00 Respiratory Rate 18 06/01/17 06:00 Blood Pressure 115/84 06/01/17 06:00 O2 Sat by Pulse Oximetry (%) 94 L 05/31/17 21:00 Constitutional: Yes: Well Nourished, No Distress, Calm Musculoskeletal: Yes: WNL Neurological: Yes: WNL, Alert, Oriented Labs: CBC, BMP 05/31/17 07:35 05/31/17 07:35 INR, PTT INR 1.16 (0.82-1.09) H 05/31/17 07:35 Assessment/Plan POD#1 s/p Laproscopic bautista under GA. Doing well. D/C from anesthesia care.
[2017-06-01] MEDS ORDERED: RANITIDINE HCL 150 MG TABLET (FP) PO ONE (11:00)
[2017-06-01 15:28] VITALS: BP 140/73; PULSE 78; TEMP 98.7
--- NOTE | 2017-06-04 15:17 | PATH ---
Surgical Pathology Report Patient Name: DOMONIQUE RUSSO [facility]. Rec. #: [id number] /Age/Gender: 1985 (Age: 31) / F Account: [id number] Location: [address] [place] [address]/[facility] Taken: 05/31/2017 Received: 06/01/2017 Reported: 06/04/2017 Physicians: Josué Andino M.D. Specimen(s) Received GALLBLADDER Clinical History Acute and chronic cholecystitis Final Diagnosis GALLBLADDER, CHOLECYSTECTOMY: CHRONIC CHOLECYSTITIS AND CHOLELITHIASIS. Electronically Signed Julian Baldwin M.D. Gross Description Received in formalin, labeled "gallbladder," is a 7.3 x 2.5 x 2.3 cm. gallbladder with a 0.2 cm. in length portion of cystic duct attached. The outer surface is soria green and varies from smooth to shaggy. The lumen contains green, tenacious bile as well as abundant brown, irregular choleliths ranging from 0.1-1.1 cm in greatest dimension. The mucosa is green and focally eroded. The wall of the gallbladder ranges from 0.1-0.3 cm. in thickness. Cloth Bale Header sections are submitted in one cassette. 06/01/201706/01/2017
== END 2017-06-01 15:30 | disposition home or self-care (01) | DRG 263 ==
LOC: JER 07:04 → JERBED 12:11 → J5S 21:16
PROVIDERS: ADMIT Surgery; ATTEND Surgery
PROC: 0FT44ZZ Resection of Gallbladder, Percutaneous Endoscopic Approach (ICD-10-PCS; principal; 2017-05-31 13:00)
DX: K80.12 Calculus of gallbladder with acute and chronic cholecystitis without obstruction (principal); E66.9 Obesity, unspecified; Z68.41 Body mass index [BMI] 40.0-44.9, adult; R10.13 Epigastric pain; K21.9 Gastro-esophageal reflux disease without esophagitis; Z87.891 Personal history of nicotine dependence
CPT/HCPCS: 36415; 76705-TC; 80053; 81003; 81015; 82150; 83690; 84702; 85025; 85610; 86850; 86900; 86901; 87070; 87086; 87430; 88304-TC; 94760; 99284-25

== ENCOUNTER 2017-06-03 17:37 | Emergency (ER) | payer OTHER ==
[2017-06-03 17:42] VITALS: BP 114/76; PULSE 88; TEMP 98; BMI 86.0
--- NOTE | 2017-06-03 18:23 | PDOC ---
History of Present Illness - General History Source: Patient Exam Limitations: No Limitations - History of Present Illness Initial Comments: 06/03/17 18:25 The patient is a 31 year old female with a significant past medical history of cholelithiasis s/p cholecystectomy removal (05/31/17) who presents to the ED with complaints of epigastric pain earlier today. The patient states she was eating chicken, mash potatoes, and chips when she had a sudden onset of epigastric pain with nausea. The patient describes her epigastric pain as sharp and a 10/10 in severity. Patient reports her epigastric pain is now resolved upon arrival to the ED . Denies fever or chills. Denies vomiting or diarrhea. Denies chest pain or shortness of breath. Denies dysuria or change in urinary output. Denies any other symptoms. <Nilsa London - Last Filed: 06/03/17 18:38> <Zayra Campos - Last Filed: 06/03/17 18:58> - General Chief Complaint: Pain Stated Complaint: STOMACH PAIN Time Seen by Provider: 06/03/17 18:05 Past History <Nilsa London - Last Filed: 06/03/17 18:38> - Past Medical History COPD: No Other medical history: NONE - Surgical History Cholecystectomy: Yes - Suicide/Smoking/Psychosocial Hx Smoking Status: Yes Smoking History: Never smoked Have you smoked in the past 12 months: No Number of Cigarettes Smoked Daily: 0 (1ppd x 10 yrs) If you are a former smoker, when did you quit?: 5 years ago 'Breaking Loose' booklet given: 06/09/14 Hx Alcohol Use: No Drug/Substance Use Hx: No Substance Use Type: None <Zayra Campos - Last Filed: 06/03/17 18:58> - Past Medical History Allergies/Adverse Reactions: Allergies Allergy/AdvReac Type Severity Reaction Status Date / Time No Known Allergies Allergy Verified 06/03/17 17:42 Home Medications: Ambulatory Orders Acetaminophen [Tylenol .Regular Strength -] 650 mg PO Q6H PRN tablet 06/01/17 Ibuprofen [Motrin -] 600 mg PO Q6H PRN tablet 06/01/17 Review of Systems - Review of Systems Able to Perform ROS?: Yes Comments:: 06/03/17 18:25 CONSTITUTIONAL: Absent: fever, chills, diaphoresis, generalized weakness, malaise, loss of appetite HEENT: Absent: rhinorrhea, nasal congestion, throat pain, throat swelling, difficulty swallowing, mouth swelling, ear pain, eye pain, visual Changes CARDIOVASCULAR: Absent: chest pain, syncope, palpitations, irregular heart rate, lightheadedness , peripheral edema RESPIRATORY: Absent: cough, shortness of breath, dyspnea with exertion, orthopnea, wheezing, stridor, hemoptysis GASTROINTESTINAL: + epigastric pain, nausea Absent: abdominal distension, vomiting, diarrhea, constipation, melena, hematochezia GENITOURINARY: Absent: dysuria, frequency, urgency, hesitancy, hematuria, flank pain, genital pain MUSCULOSKELETAL: Absent: myalgia, arthralgia, joint swelling SKIN: Absent: rash, itching, pallor HEMATOLOGIC/IMMUNOLOGIC: Absent: easy bleeding, easy bruising, lymphadenopathy, frequent infections ENDOCRINE: Absent: unexplained weight gain, unexplained weight loss, heat intolerance, cold intolerance NEUROLOGIC: Absent: headache, focal weakness or paresthesias, dizziness, unsteady gait, seizure, mental status changes, bladder or bowel incontinence PSYCHIATRIC: Absent: anxiety, depression, suicidal or homicidal ideation, hallucinations. All Other Systems: Reviewed and Negative <Nilsa London - Last Filed: 06/03/17 18:38> *Physical Exam - Vital Signs Last Vital Signs Temp Pulse Resp BP Pulse Ox 98.0 F 88 20 114/76 98 06/03/17 17:38 06/03/17 17:38 06/03/17 17:38 06/03/17 17:38 06/03/17 17:38 - Physical Exam Comments: 06/03/17 18:38 GENERAL: Well developed, well nourished. Awake and alert. No acute distress. HEENT: Normocephalic, atraumatic. PERRLA, EOMI. No conjunctival pallor. Sclera are non- icteric. Moist mucous membranes. Oropharynx is clear. NECK: Supple. Full ROM. No JVD. Carotid pulses 2+ and symmetric, without bruits. No thyromegaly. NCo lymphadenopathy. CARDIOVASCULAR: Regular rate and rhythm. No murmurs, rubs, or gallops. Distal pulses are 2+ and symmetric. PULMONARY: No evidence of respiratory distress. Lungs clear to auscultation bilaterally. No wheezing, rales or rhonchi. ABDOMINAL: Soft. Non-tender. Non-distended. No rebound or guarding. No organomegaly. Normoactive bowel sounds. MUSCULOSKELETAL Normal range of motion at all joints. No bony deformities or tenderness. No CVA tenderness. EXTREMITIES: No cyanosis. No clubbing. No edema. No calf tenderness. SKIN: Warm and dry. Normal capillary refill. No rashes. No jaundice. NEUROLOGICAL: Alert, awake, appropriate. Cranial nerves 2-12 intact. No deficits to light touch and temperature in face, upper extremities and lower extremities. No motor deficits in the in face, upper extremities and lower extremities. Normoreflexic in the upper and lower extremities. Normal speech. Toes are down- going bilaterally. Gait is normal without ataxia. PSYCHIATRIC: Cooperative. Good eye contact. Appropriate mood and affect. <Nilsa London - Last Filed: 06/03/17 18:38> - Vital Signs Last Vital Signs Temp Pulse Resp BP Pulse Ox 98.0 F 88 20 114/76 98 06/03/17 17:38 06/03/17 17:38 06/03/17 17:38 06/03/17 17:38 06/03/17 17:38 <Zayra Campos - Last Filed: 06/03/17 18:58> *DC/Admit/Observation/Transfer - Attestations Scribe Attestion: 06/03/17 18:25 Documentation prepared by Nilsa London, acting as certified medical technician assistant for Zayra Campos MD <Nilsa London - Last Filed: 06/03/17 18:38> <Zayar Campos - Last Filed: 06/03/17 18:58> Diagnosis at time of Disposition: Epigastric abdominal pain - Discharge Dispostion Disposition: HOME Condition at time of disposition: Stable - Patient Instructions Printed Discharge Instructions: DI for Epigastric Pain
== END 2017-06-03 19:01 | disposition home or self-care (01) ==
LOC: JER 17:37
DX: R10.13 Epigastric pain (principal); Z90.49 Acquired absence of other specified parts of digestive tract
CPT/HCPCS: 99282-25

== ENCOUNTER 2017-07-07 12:58 | Emergency (ER) | payer OTHER ==
[2017-07-07 13:06] VITALS: BP 118/78; PULSE 82; TEMP 98.3; BMI 42.0
--- NOTE | 2017-07-07 13:20 | PDOC ---
History of Present Illness - General Chief Complaint: Eye Problem Stated Complaint: RT EYE ITCHINESS Time Seen by Provider: 07/07/17 13:04 History Source: Patient Exam Limitations: No Limitations - History of Present Illness Initial Comments: 31 yo F presents with R eye redness for past 1 day. She is in ED with her son who has pinkeye. He had recent cough and cold, now with redness of both eyes. She has itching and slight redness of the R eye. No other symptoms- no fever, cough, congestion, recent illness. No vision changes. Past History - Past Medical History Allergies/Adverse Reactions: Allergies Allergy/AdvReac Type Severity Reaction Status Date / Time No Known Allergies Allergy Verified 07/07/17 13:04 Home Medications: Ambulatory Orders NK [No Known Home Medication] 07/07/17 COPD: No - Surgical History Cholecystectomy: Yes - Suicide/Smoking/Psychosocial Hx Smoking Status: Yes Smoking History: Never smoked Have you smoked in the past 12 months: No Number of Cigarettes Smoked Daily: 0 If you are a former smoker, when did you quit?: 5 years ago Information on smoking cessation initiated: No 'Breaking Loose' booklet given: 06/09/14 Hx Alcohol Use: (occasional) Drug/Substance Use Hx: No Substance Use Type: None Review of Systems - Review of Systems Able to Perform ROS?: Yes Comments:: GENERAL/CONSTITUTIONAL: No fever or chills. No weakness. HEAD, EYES, EARS, NOSE AND THROAT: No change in vision. No ear pain or discharge. No sore throat. +R right eye. CARDIOVASCULAR: No chest pain or shortness of breath. RESPIRATORY: No cough, wheezing, or hemoptysis. GASTROINTESTINAL: No nausea, vomiting, diarrhea or constipation. GENITOURINARY: No dysuria, frequency, or change in urination. MUSCULOSKELETAL: No joint or muscle swelling or pain. No neck or back pain. SKIN: No rash NEUROLOGIC: No headache, vertigo, loss of consciousness, or change in strength/ sensation. ENDOCRINE: No increased thirst. No abnormal weight change. HEMATOLOGIC/LYMPHATIC: No anemia, easy bleeding, or history of blood clots. ALLERGIC/IMMUNOLOGIC: No hives or skin allergy. *Physical Exam - Vital Signs Last Vital Signs Temp Pulse Resp BP Pulse Ox 98.3 F 82 18 118/78 98 07/07/17 12:58 07/07/17 12:58 07/07/17 12:58 07/07/17 12:58 07/07/17 12:58 - Physical Exam Comments: GENERAL: Awake, alert, and fully oriented, in no acute distress HEAD: No signs of trauma EYES: PERRLA, EOMI, sclera anicteric, R lateral conjunctiva erythematous. Remainder of conjunctiva clear ENT: Auricles normal inspection, hearing grossly normal, nares patent, oropharynx clear without exudates. Moist mucosa NEUROLOGICAL: Cranial nerves II through XII grossly intact. Normal speech, normal gait SKIN: Warm, Dry, normal turgor, no rashes or lesions noted. Medical Decision Making - Medical Decision Making 07/07/17 13:32 Counseled mom that this is likely viral conjunctivitis, given the lack of discharge, fever. She is not ill-appearing. Son has similar symptoms in both eyes. Counseled her to wash hands frequently. Wash sheets and pillowcases in hot water. Stable for DC home. *DC/Admit/Observation/Transfer Diagnosis at time of Disposition: Viral conjunctivitis of right eye - Discharge Dispostion Disposition: HOME Condition at time of disposition: Stable Admit: No - Referrals - Patient Instructions Printed Discharge Instructions: DI for Conjunctivitis Additional Instructions: WASH SHEETS AND TOWELS IN HOT WATER. WASH HANDS FREQUENTLY. IF LASHES BECOME MATTED, APPLY A TOWEL MOISTENED WITH WARM WATER TO ALLOW THEM TO OPEN. - Post Discharge Activity
== END 2017-07-07 13:30 | disposition home or self-care (01) ==
LOC: FER 12:58
DX: B30.9 Viral conjunctivitis, unspecified (principal); Z87.891 Personal history of nicotine dependence
CPT/HCPCS: 99282-25

== ENCOUNTER 2018-07-23 18:08 | Emergency (ER) | payer OTHER ==
--- NOTE | 2018-07-23 18:19 | PDOC ---
Rapid Medical Evaluation Chief Complaint: Rash Time Seen by Provider: 07/23/18 18:17 Medical Evaluation: Allergies Allergy/AdvReac Type Severity Reaction Status Date / Time No Known Allergies Allergy Verified 07/07/17 13:04 07/23/18 18:18 I have performed a brief in person evaluation of this patient. The patient's CC: rash HPI: Pt is and complains of a rash on her back x 2 days. PE: Skin: not evaluated at triage Heart: RRR Lungs: Clear MS. moves all extremities without difficulty Neuro: Alert and oriented Psch: appropriate affect The patient will proceed to [facility] for further evaluation. Discharge Disposition - Diagnosis Rash - Referrals - Patient Instructions - Post Discharge Activity
[2018-07-23 18:22] VITALS: BP 112/65; PULSE 107; TEMP 98.7; BMI 39.8
--- NOTE | 2018-07-23 18:56 | PDOC ---
History of Present Illness - General Chief Complaint: Rash Stated Complaint: 17 WEEKS COLD SYMPTOMS Time Seen by Provider: 07/23/18 18:17 - History of Present Illness Initial Comments: 07/23/18 18:54 32-year-old female without comorbidities 18 weeks , presents for evaluation of rash on the lower back fever chills night sweats and upper respiratory symptoms congestion runny nose 2 days Past History - Past Medical History Allergies/Adverse Reactions: Allergies Allergy/AdvReac Type Severity Reaction Status Date / Time No Known Allergies Allergy Verified 07/07/17 13:04 Home Medications: Ambulatory Orders NK [No Known Home Medication] 07/07/17 COPD: No - Surgical History Cholecystectomy: Yes - Immunization History Immunization Up to Date: Yes - Suicide/Smoking/Psychosocial Hx Smoking Status: Yes Smoking History: Never smoked Have you smoked in the past 12 months: No Number of Cigarettes Smoked Daily: 0 If you are a former smoker, when did you quit?: 5 years ago Information on smoking cessation initiated: No 'Breaking Loose' booklet given: 06/09/14 Hx Alcohol Use: No Drug/Substance Use Hx: No Substance Use Type: None Review of Systems - Review of Systems Constitutional: Yes: Chills, Fever, Malaise, Night Sweats HEENTM: Yes: Nose Congestion Respiratory: Yes: Cough Integumentary: Yes: Rash *Physical Exam - Vital Signs Last Vital Signs Temp Pulse Resp BP Pulse Ox 98.7 F 107 H 17 112/65 97 07/23/18 18:19 07/23/18 18:19 07/23/18 18:19 07/23/18 18:19 07/23/18 18:19 - Physical Exam Comments: 07/23/18 18:54 HEAD: NC/AT EYES: Conjuntiva clear Ears: Canals and TM's normal NOSE: No d/c THROAT: Moist mucous membrances, oral pharanx clear, uvula midline NECK: Supple without adenopathy CARDIAC: S1 S2 LUNGS: CTA Full and Equal breath sounds ABDOMEN: Soft NT ND MS: Full ROM in all joints without edema NEUROLOGIC: No gross sensory or motor deficits, NVID SKIN: Normal color and temperature no lesions or rashes Moderate Sedation - Procedure Monitoring Vital Signs: Procedure Monitoring Vital Signs Temperature 98.7 F 07/23/18 18:19 Pulse Rate 107 H 01/22/19 18:19 Respiratory Rate 17 07/23/18 18:19 Blood Pressure 112/65 07/23/18 18:19 O2 Sat by Pulse Oximetry (%) 97 07/23/18 18:19 Medical Decision Making - Medical Decision Making 07/23/18 18:55 Patient reports a rash to the lower back. There are no rashes on the lower back is normal skin color and temperature *DC/Admit/Observation/Transfer Diagnosis at time of Disposition: Upper respiratory infection Diagnosis at time of Disposition: (Ruled Out): Rash - Discharge Dispostion Disposition: HOME Condition at time of disposition: Stable Decision to Admit order: No - Referrals - Patient Instructions Printed Discharge Instructions: Common Cold, DI for Viral Upper Respiratory Infection -- Adult Additional Instructions: Your flu was negative. Return to the emergency room should symptoms worsen or go unresolved. Continue to take Tylenol as directed should you develop a fever and also for any discomfort. Follow-up with your [employer] as well as her general practitioner in one to 2 days for further evaluation and treatment options. Return to the emergency room should symptoms worsen or go unresolved - Post Discharge Activity
== END 2018-07-23 19:38 | disposition home or self-care (01) ==
LOC: JERFT 18:08
DX: O26.892 Other specified pregnancy related conditions, second trimester (principal); O99.512 Diseases of the respiratory system complicating pregnancy, second trimester; J06.9 Acute upper respiratory infection, unspecified; Z3A.18 18 weeks gestation of pregnancy
CPT/HCPCS: 87804; 99281-25

== ENCOUNTER 2021-09-13 20:35 | Emergency (ER) | payer OTHER ==
[2021-09-13 20:54] VITALS: BP 118/69; PULSE 75; TEMP 97.8; BMI 42.1
[2021-09-13] MEDS ORDERED: IBUPROFEN 600 MG TABLET (FP) PO ONE ×2 (21:44→22:15)
== END 2021-09-13 22:20 | disposition home or self-care (01) ==
LOC: FER 20:35
DX: R07.89 Other chest pain (principal)
CPT/HCPCS: 36415; 82550; 84484; 93005; 93010; 99284-25

== ENCOUNTER 2023-10-18 20:39 | Emergency (ER) | payer OTHER ==
[2023-10-18 20:53] VITALS: BP 123/78; PULSE 74; RESP 18; TEMP 98.2; BMI 32.2
[2023-10-18] MEDS ORDERED: ACETAMINOPHEN INJECTION 100 ML IVPB ONE (21:43)
[2023-10-18] MEDS ORDERED: LIDOCAINE HCL 2% JELLY 6 ML TP ONE (21:45)
[2023-10-18] MEDS: morphine CARPU-JECT 4 MG/1 ML DISP.SYRIN IVPUSH ONE (21:46)
[2023-10-18] MEDS: LIDOCAINE HCL 2% JELLY (30 ML/TUBE) TP ONE (21:46)
[2023-10-18] MEDS: ACETAMINOPHEN 1000 MG/100 ML BAG IVPB ONE (21:46)
[2023-10-18 21:47] LABS: BASO % 0.6 % (0-2.0); EOS % 4.3 % (0-4.5); HEMATOCRIT 34.3 % (32.4-45.2); HEMOGLOBIN 11.7 GM/dL (10.7-15.3); MCH 27.9 pg (25.7-33.7); MEAN PLT VOLUME 8.6 fl (7.5-11.1); MONO % 9.5 % (3.8-10.2); NEUT % 64.6 % (42.8-82.8); PLATELET COUNT 262 10^3/uL (134-434); RBC 4.18 M/mm3 (3.60-5.2); RDW 13.4 % (11.6-15.6); WHITE BLOOD COUNT 7.4 K/mm3 (4.0-10.0)
[2023-10-18 21:53] LABS: INR 1.01 (0.83-1.09); PROTHROMBIN TIME (PATIENT) 11.7 SEC (9.7-13.0)
[2023-10-18 21:55] LABS: ACTIVATED PTT 29.3 SECONDS (25.2-36.5)
[2023-10-18 22:10] LABS: POTASSIUM 4.2 mmol/L (3.5-5.1)
[2023-10-18 22:12] LABS: CALCIUM 8.6 mg/dL (8.5-10.1)
[2023-10-18 22:13] LABS: ALBUMIN 3.1 g/dl (3.4-5.0); BLOOD UREA NITROGEN 12.7 mg/dL (7-18)
[2023-10-18 22:16] LABS: CREATININE 0.8 mg/dL (0.55-1.3)
[2023-10-18 22:18] LABS: BILIRUBIN,TOTAL 0.4 mg/dL (0.2-1); TOT PROT 7.1 g/dl (6.4-8.2)
== END 2023-10-19 00:23 | disposition home or self-care (01) ==
LOC: JER 20:39
DX: K62.89 Other specified diseases of anus and rectum (principal); K64.5 Perianal venous thrombosis
CPT/HCPCS: 36415; 72193-TC; 80053; 82272; 84703; 85025; 85610; 85730; 86850; 86900; 86901; 99285-25; J0131; Q9967